=== PATIENT | male | born 1935 | race Caucasian/White ===

== ENCOUNTER 2020-02-24 13:06 | Outpatient (CLI) | payer MEDICARE, BC, SELFPAY ==
--- NOTE | 2020-02-24 13:30 | USCV_ITS ---
Servando Mullen Age: 84 Gender: M : 1935 Exam Date: 02/24/2020 13:10 Ordering Phys: Nancy Tracey MD ([email or web address]) Technologist: Natalya Cardenas Exam Location: [facility] [place] Indication: lifestyle limiting claudication RIGHT LEFT Brachial 162.00 mmHg Brachial 147.00 mmHg Pressure (mmHg) Waveform Pressure (mmHg) Waveform 192.00 [employer] 183.00 214.00 DPA 176.00 1.32 Ankle/Brachial Index 1.13 1.05 Pre-Exercise Toe/Brachial Index 1.09 FINDINGS Normal resting ABIs bilaterally Normal resting TBIs bilaterally CONCLUSIONS No significant arterial obstruction, based on the above findings Dr Aisha Lux MD [facility] (Electronically Signed) Final Date: 24 February 2020 20:08 S
== END 2020-02-24 13:07 | disposition home or self-care (01) ==
LOC: RAD 13:10
PROVIDERS: Family Provider Student in an Organized Health Care Education/Training Program; PCP Student in an Organized Health Care Education/Training Program; Visit Provider Internal Medicine Cardiovascular Disease
DX: I73.9 Peripheral vascular disease, unspecified (principal)
CPT/HCPCS: 93922

== ENCOUNTER 2020-11-29 09:44 | Outpatient (CLI) | payer MEDICARE, BC, SELFPAY ==
--- NOTE | 2020-11-29 09:51 | XR_ITS ---
WS: [id number] Exam: XR KUB [id number] Date/Time of Exam: 11/29/2020 9:51 AM Reason For Exam: N20.0 - Calculus of kidney Comparison 06/30/2019. No bowel obstruction or free air. Signs of right upper quadrant surgery with clips. Calcifications fermin perimpose both renal silhouette suggesting renal lithiasis. A 2.3 x 1.4 cm calcification superimposes the right renal pelvis and likely represents a large renal pelvic stone. Moderately advanced degener ative changes of lumbar spine and hips. XR/XR KUB [id number] IMPRESSION: 1. Bilateral renal lithiasis. 2.3 x 1.4 cm calcification overlying the right re nal pelvis suggesting a large stone. Overall no change since prior study.
--- NOTE | 2020-11-29 09:51 | US_ITS ---
WS: [id number] RENAL ULTRASOUND HISTORY: N40.1 - Benign prostatic hyperplasia with lower urinary tract symptoms COMPARISON: 06/30/2018 TECHNIQUE: 2-D and color Doppler imaging of the kidney submitted. Right kidney: 10.3 cm x 6.1 cm x 6.6 cm. Normal echogenicity with no hydronephrosis or mass. There are a few scattered nonobstructing calcific ations with the largest measuring 7 mm. Left kidney: 10.0 cm x 5.4 cm x 5.4 cm. Normal size kidney with a few nonobstructing calcifications. Aorta: Normal. Urinary Bladder: Moderately distended urinary bladder. Diffuse bladder wall thickening. There is a ma rked enlarged prostate gland with lobulations. Gland measures 7.1 x 7.2 x 5.0 cm. US/US renal BI* [id number] IMPRESSION: 1. No renal obstruction or atrophy. 2. Markedly enlarged lobulated prostate encroaching into the urinary bladder. Similar appearance to the prostate gland in 2018.
== END 2020-11-29 09:45 | disposition home or self-care (01) ==
LOC: RAD 09:49
PROVIDERS: PCP Family Medicine; Visit Provider Urology
DX: N20.0 Calculus of kidney (principal); N40.1 Benign prostatic hyperplasia with lower urinary tract symptoms; N40.0 Benign prostatic hyperplasia without lower urinary tract symptoms
CPT/HCPCS: 74018; 76770; 81003

== ENCOUNTER → 2022-03-09 09:39 | Outpatient (BNVA) | payer MEDICARE, BC, SELFPAY | PROVIDERS: PCP Family Medicine; Visit Provider Internal Medicine Cardiovascular Disease | DX: Z45.010 Encounter for checking and testing of cardiac pacemaker pulse generator [battery] (principal) | CPT/HCPCS: 93280 ==

== ENCOUNTER 2022-08-14 09:56 | Outpatient (CLI) | payer MEDICARE, BC, SELFPAY ==
--- NOTE | 2022-08-14 10:04 | XR_ITS ---
WS: [id number] XR KUB [id number] REASON FOR EXAM: kidney stone FINDINGS: Previous cholecystectomy. There are multiple small calculi (2 to 3 mm) overlying the lower pole of the right kidney. There is a 10 mm and a 22 mm calculus overlying the region of the right renal pelvis. These calculi are unchang ed compared to previous examination of 11/29/2020. There is a 7 mm calculus overlying the lower pole left kidney. This calculus is unchanged compared to 11/29/2020. No other urinary tract calculi are identified. 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
== END 2022-08-14 09:57 | disposition home or self-care (01) ==
LOC: RAD 09:58
PROVIDERS: PCP Family Medicine; Visit Provider Urology
DX: N40.1 Benign prostatic hyperplasia with lower urinary tract symptoms (principal); N20.0 Calculus of kidney
CPT/HCPCS: 51798; 74018; 81003; 99213

== ENCOUNTER → 2022-09-17 15:11 | Outpatient (BNVA) | payer MEDICARE, BC, SELFPAY | PROVIDERS: PCP Family Medicine; Visit Provider Internal Medicine Cardiovascular Disease | DX: I11.0 Hypertensive heart disease with heart failure (principal); I50.9 Heart failure, unspecified; Z95.0 Presence of cardiac pacemaker; N40.1 Benign prostatic hyperplasia with lower urinary tract symptoms; Z87.891 Personal history of nicotine dependence | CPT/HCPCS: 93005; 93288; 99214; Q3014 ==

== ENCOUNTER → 2022-09-24 11:01 | Outpatient (BNVA) | payer MEDICARE, BC, SELFPAY | PROVIDERS: PCP Family Medicine; Visit Provider Internal Medicine Cardiovascular Disease | DX: I10 Essential (primary) hypertension (principal); R06.02 Shortness of breath; Z95.0 Presence of cardiac pacemaker | CPT/HCPCS: 36415; 80053; 83735; 83880; 85025; 93288 ==

== ENCOUNTER → 2022-10-15 14:14 | Outpatient (BNVA) | payer MEDICARE, BC, SELFPAY | PROVIDERS: PCP Family Medicine; Visit Provider Nurse Practitioner Family | DX: I11.0 Hypertensive heart disease with heart failure (principal); I50.9 Heart failure, unspecified; Z95.0 Presence of cardiac pacemaker; Z87.891 Personal history of nicotine dependence; R06.02 Shortness of breath; Z86.79 Personal history of other diseases of the circulatory system | CPT/HCPCS: 36415; 80048; 83735; 83880; 99214 ==

== ENCOUNTER 2022-10-19 11:43 | Outpatient (CLI) | payer MEDICARE, BC, SELFPAY ==
--- NOTE | 2022-10-19 12:00 | USCV_ITS ---
Mullen Servando Age: 86 Gender: M : 1935 Exam Date: 10/19/2022 12:04 Ordering Phys: Roxane Webster MD ([email or web address]) Technologist: Natalya Cardenas Exam Location: [facility] [place] Indication: SOB BP: 128 / 70 HR: 65 Rhythm: Sinus Technical Quality: Adequate MEASUREMENTS (Male / Female) Normal Values 2D ECHO LV Diastolic Diameter PLAX 5.1 cm 4.2 - 5.9 / 3.9 - 5.3 cm LV Systolic Diameter PLAX 2.8 cm IVS Diastolic Thickness 0.7 cm 0.6 - 1.0 / 0.6 - 0.9 cm IVS Systolic Thickness 1.9 cm LVPW Diastolic Thickness 1.1 cm 0.6 - 1.0 / 0.6 - 0.9 cm LVPW Systolic Thickness 1.7 cm LVOT Diameter 2.1 cm LV Ejection Fraction 2D Teich 76.8 % LV Ejection Fraction MOD 2C 59.9 % LV Ejection Fraction 2C AL 61.8 % LA Diameter 4.1 cm LA Width 3.5 cm LA Height 4.1 cm RA Width 3.5 cm RA Height 4.4 cm Aorta at Sinotubular Diameter 2.5 cm M-MODE MV E Point Septal Separation 1.7 cm DOPPLER AV Peak Velocity 118.0 cm/s LVOT Peak Velocity 78.0 cm/s AV Area Cont Eq vti 1.4 cm squared AV Area Cont Eq pk 2.2 cm squared MV Peak Velocity 92.0 cm/s MV Area PHT 4.3 cm squared Mitral E to A Ratio 5.7 MV E' Velocity 55.5 cm/s Mitral E to MV E' Ratio 10.0 Mitral E to LV E' Lateral Ratio 7.2 Mitral E to LV E' Septal Ratio 16.4 PV Peak Velocity 87.0 cm/s RV Acceleration Time 0.1 s RV Ejection Time 0.3 s RV AcT/ET 0.4 FINDINGS Left Ventricle Mildly increased left ventricular cavity size. Moderately decreased left ventricular systolic function. Left ventricular ejection fraction is estimated at 45 %. Please note that due to foreshortening of the left ventricle cannot be measured accurately left ventricle ejection fraction however on short axis there appeared to be severe anterior wall hypokinesis Right Ventricle The right ventricle is normal in size and function. Right Atrium The right atrium is normal in size. Left Atrium Moderately increased left atrial size. Mitral Valve Moderately thickened mitral valve. No mitral valve stenosis. Trace mitral valve regurgitation. Aortic Valve Structurally normal aortic valve without significant sclerosis or stenosis. There is no aortic regurgitation. Tricuspid Valve Structurally normal tricuspid valve without significant stenosis or regurgitation. Pulmonary artery systolic pressure is normal. Pulmonic Valve Structurally normal pulmonic valve without significant stenosis. There is no pulmonic regurgitation. Pericardium Normal pericardium without effusion. Aorta Normal ascending aorta dimension. IVC The inferior vena cava appears normal. CONCLUSIONS 1-Mildly increased left ventricular cavity size. Moderately decreased left ventricular systolic function. Left ventricular ejection fraction is estimated at 45 %. Please note that due to foreshortening of the left ventricle cannot be measured accurately left ventricle ejection fraction however on short axis there appeared to be severe anterior wall hypokinesis 2-Moderately thickened mitral valve. No mitral valve stenosis. Trace mitral valve regurgitation. 3-There is no pericardial effusion. Nancy Tracey MD (Electronically Signed) Final Date: 20 October 2022 00:32 S
== END 2022-10-19 11:44 | disposition home or self-care (01) ==
PROVIDERS: PCP Family Medicine; Visit Provider Internal Medicine Cardiovascular Disease
DX: I05.9 Rheumatic mitral valve disease, unspecified (principal); R06.02 Shortness of breath; Z95.0 Presence of cardiac pacemaker
CPT/HCPCS: 93306

== ENCOUNTER 2022-11-27 09:45 | Outpatient (CLI) | payer MEDICARE, BC, SELFPAY ==
--- NOTE | 2022-11-27 | ECG_ITS ---
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 Interpretive Statements NAME OF STUDY: LEXISCAN SESTAMIBI STRESS TEST INDICATION: Low ef%, PROCEDURE: At the baseline, the EKG revealed atrial fibrillation with a right bundle branch block pattern. Demand V paced rhythm.. The baseline heart was 70 bpm with a blood pressue of 124/69 mm of Hg Lexiscan was infused over a period of 20 seconds. A total of 0.4 milligrams of Lexiscan was infused. The stress phase was continued for a total of 5 minutes. Heart rate at the end of the stress phase was 60 bpm with a blood pressure 108/57 mm of Hg. The EKG at the peak infusion revealed no significant changes. Sestamibi was injected 20 seconds after the Lexiscan infusion. Heart rate at the end of the recovery phase was 60 bpm with a blood pressure of 104/41 mm of Hg. CONCLUSION: 1. No significant EKG changes with the LexiScan infusion 2. No LexiScan induced chest pain or cardiac arrhythmia 3. Normal blood pressure and heart rate response 4. Sestamibi/sestamibi perfusion scan pending; see separate report. Electronically Signed On 12-02-2022 22:42:01 CDT by Aisha Lux M.D. [id number]
[2022-11-27 10:48] VITALS: BMI 23.7
--- NOTE | 2022-11-27 10:51 | NMCV_ITS ---
NM marlen perf SPECT r/s* [id number] Servando Mullen Age: 87 Gender: M : 1935 Exam Date: 11/27/2022 10:51 Ordering Phys: Aisha Lux MD ([email or web address]) Technologist: MYLA Hall Exam Location: [facility] Indications: SHORTNESS OF BREATH STRESS TEST Please see separate stress test report in [facility] for full findings IMAGE PROTOCOL Rest/Stress 1 Lexiscan Day Radiopharmaceutical Dose (mCi) Administration Site Administered by Rest: Tc-99m 10.6 IV MYLA Robles Sestamibi Stress:Tc-99m 32.4 IV MYLA Hall Sestamisharon Rest: 11/27/2022 60 Discovery 630 Stress: 11/27/2022 30 Discovery 630 0.4mg Lexiscan. Supine position only as patient was unable to lay prone. SPECT RESULTS Technical Quality: Excellent Raw Data Analysis: Normal Image Corrections: No attenuation or motion correction applied Summed Stress Score: 3 Summed Rest Score: 8 Summed Difference Score: 0 PERFUSION FINDINGS A small area of decreased tracer uptake was noted in the apical septum and LV apex. No significant reversibility was noted in this region FUNCTIONAL RESULTS (calculated via Gated SPECT) Stress Image LV EF (%): 49 Stress EDV (mL):187 TID: 0.96 Stress ESV (mL):95 FUNCTIONAL FINDINGS: Segmental wall motion analysis revealed mild diffuse hypokinesia of the LV apex. IMPRESSIONS 1. Myocardial perfusion imaging revealing small area of persistent decreased tracer uptake in the apical septum and LV apex, suggesting myocardial scarring versus attenuation artifact. 2. Slightly diminished LV ejection fraction of 49%. 3. LV wall motion analysis revealing mild diffuse hypokinesia of the LV apex. 4. Mildly dilated LV cavity, with an end-systolic volume of 95 ml No significant coronary ischemia, based on the above findings. Dr Aisha Lux MD [facility] (Electronically Signed) Final Date: 27 November 2022 13:45 S
[2022-11-27] MEDS: regadenoson 0.4 Mg/5 ml Syringe IVP (12:13)
[2022-11-27 12:33] VITALS: BP 104/41; PULSE 60
== END 2022-11-27 09:46 | disposition home or self-care (01) ==
PROVIDERS: PCP Family Medicine; Visit Provider Internal Medicine Cardiovascular Disease
DX: R06.02 Shortness of breath (principal); Z95.0 Presence of cardiac pacemaker
CPT/HCPCS: 36415; 78452; 93017; 96374; A9500; J2785

== ENCOUNTER → 2022-12-27 09:51 | Outpatient (BNVA) | payer MEDICARE, BC, SELFPAY | PROVIDERS: PCP Family Medicine; Visit Provider Internal Medicine Cardiovascular Disease | DX: I73.9 Peripheral vascular disease, unspecified (principal); I11.0 Hypertensive heart disease with heart failure; I50.9 Heart failure, unspecified; Z95.0 Presence of cardiac pacemaker; Z87.891 Personal history of nicotine dependence | CPT/HCPCS: 99214 ==

== ENCOUNTER → 2023-04-05 10:04 | Outpatient (BNVA) | payer MEDICARE, BC, SELFPAY | PROVIDERS: PCP Family Medicine; Visit Provider Internal Medicine Cardiovascular Disease | DX: I11.0 Hypertensive heart disease with heart failure (principal); I50.9 Heart failure, unspecified; Z95.0 Presence of cardiac pacemaker; Z87.891 Personal history of nicotine dependence | CPT/HCPCS: 99214 ==

== ENCOUNTER → 2023-06-24 13:25 | Outpatient (BNVA) | payer OTHER, SELFPAY | PROVIDERS: PCP Family Medicine; Referring Provider Emergency Medicine Emergency Medical Services; Visit Provider Nurse Practitioner Family | DX: I11.0 Hypertensive heart disease with heart failure (principal); Z95.0 Presence of cardiac pacemaker; I48.20 Chronic atrial fibrillation, unspecified; Z87.891 Personal history of nicotine dependence | CPT/HCPCS: 99213 ==